=== PATIENT | female | born 1965 | race Caucasian/White ===

== ENCOUNTER → 2016-09-24 | Outpatient (CLI) | payer OTHER ==
[~2016-09-24] MED LIST: AZIT200S49 PO; [UNRECOGNIZED DRUG - OTHER]
== END | disposition home or self-care (01) ==
LOC: C.PAPS 09:56
PROVIDERS: ATTEND Obstetrics & Gynecology
DX: Z12.4 Encounter for screening for malignant neoplasm of cervix (principal)

== ENCOUNTER → 2016-09-26 | Outpatient (CLI) | payer OTHER ==
[2016-09-26 11:02] LABS: INSULIN FASTING 12.9 mU/L (3-25); INSULIN LOG 1.1106
[2016-09-26 11:45] LABS: THYROID STIMULATING HORMONE 1.1 uIu/ml (0.300-4.500)
[2016-09-26 13:17] LABS: CALCULATED INSULIN SENSITIVITY 0.321
== END | disposition home or self-care (01) ==
LOC: C.LAB1850 09:45
PROVIDERS: ATTEND Obstetrics & Gynecology
DX: R63.5 Abnormal weight gain (principal); N95.1 Menopausal and female climacteric states; N92.6 Irregular menstruation, unspecified

== ENCOUNTER 2022-10-14 22:42 | Inpatient (IN) ==
[2022-10-14] MEDS ORDERED: KETOROLAC TROMETHAMINE 15 MG/ML VIAL IV STA (22:55)
[2022-10-14] MEDS ORDERED: SODIUM CHLORIDE 0.9% 1000ML 1,000 ML IV STA (22:55)
[2022-10-14] MEDS ORDERED: ONDANSETRON INJ 2 MG/ML 2 ML VIAL IV STA (23:16)
--- NOTE | 2022-10-14 23:16 | Emergency Department Note ---
History of Present Illness General Chief complaint: Kidney Stone Stated complaint: Kidney Stones Time Seen by Provider: 10/14/22 22:53 History of Present Illness Maximum Pain Intensity: 10 57-year-old female presents with a history of a 3 mm distal right ureteral stone was seen by my colleague yesterday was offered pain medicine on discharge and did not want any pain medicine. Patient returns this evening complaining of right flank pain that is worsened some mild nausea. Patient does state that she took Flomax. Patient denies any other complaints. Patient denies fever. There are no other mitigating or alleviating factors Home Medications Medication Instructions Recorded Confirmed Type conjugated estrogens 0.625 mg 0.625 mg PO DAILY #90 tabs 05/09/22 10/13/22 Rx tablet (Premarin) medroxyprogesterone 2.5 mg tablet 2.5 mg PO DAILY #90 tabs 05/09/22 10/13/22 Rx (Provera) tamsulosin 0.4 mg capsule (Flomax) 0.4 mg PO HS #14 caps 10/13/22 Rx Allergies Allergy/AdvReac Type Severity Reaction Status Date / Time No Known Drug Allergies Allergy Unknown Verified 10/13/22 15:08 Past Med/Surg History Surgical History H/O wisdom tooth extraction Family History Other Diabetes Heart disease Social History Smoking Status: Never smoker Hx Alcohol Use: No Preferred Language: Serbian Feels Safe at Home: Yes Immunizations: Past medical history is kidney stone Review of Systems A total of 10 systems reviewed and were otherwise negative Gastrointestinal: + abdominal pain and + nausea Physical Exam Vital Signs Vital Signs - 24 hr 10/14/22 22:53 10/14/22 23:10 10/15/22 00:00 Temperature 37 C Temperature Source Temporal Artery Scan Pulse Rate 131 H 128 H Pulse Rate from SpO2 Sensor Pulse Rhythm Regular Regular Pulse Strength Normal Respiratory Rate 24 24 20 Respiratory Effort / Characteristics Non-Labored Spontaneous Non-Labored Respiratory Depth Normal Normal Respiratory Pattern Regular Blood Pressure 171/84 H Blood Pressure [Right Arm] 179/83 H Blood Pressure Mean 113 Blood Pressure Mean [Right Arm] 115 Blood Pressure Position Sitting Blood Pressure Position [Right Arm] Lying Pulse Oximetry 94 97 98 Oxygen Delivery Method Room Air Room Air Room Air Sepsis Recent Fever Within 48 Hours No Sepsis New/Unexplained Change in Mental Status N/A Sepsis Action Taken by Nursing No Action Required 10/15/22 01:45 10/15/22 02:00 10/15/22 02:11 Temperature 36.7 C Temperature Source Oral Pulse Rate 143 H 146 H Pulse Rate from SpO2 Sensor 143 H Pulse Rhythm Pulse Strength Respiratory Rate 24 22 Respiratory Effort / Characteristics Respiratory Depth Respiratory Pattern Blood Pressure 150/84 H 150/84 H Blood Pressure [Right Arm] Blood Pressure Mean 106 106 Blood Pressure Mean [Right Arm] Blood Pressure Position Blood Pressure Position [Right Arm] Pulse Oximetry 94 96 Oxygen Delivery Method Room Air Room Air Sepsis Recent Fever Within 48 Hours Sepsis New/Unexplained Change in Mental Status Sepsis Action Taken by Nursing 10/15/22 03:00 10/15/22 03:30 10/15/22 04:00 Temperature Temperature Source Pulse Rate 137 H 138 H 139 H Pulse Rate from SpO2 Sensor 136 H 140 H Pulse Rhythm Pulse Strength Respiratory Rate 25 H 24 24 Respiratory Effort / Characteristics Respiratory Depth Respiratory Pattern Blood Pressure 114/86 124/90 128/68 Blood Pressure [Right Arm] Blood Pressure Mean 95 101 88 Blood Pressure Mean [Right Arm] Blood Pressure Position Blood Pressure Position [Right Arm] Pulse Oximetry 95 91 Oxygen Delivery Method Room Air Sepsis Recent Fever Within 48 Hours Sepsis New/Unexplained Change in Mental Status Sepsis Action Taken by Nursing GENERAL: Patient is awake alert in moderate pain writhing on the stretcher EYES: The conjunctivae are clear. The pupils are round and reactive. EARS, NOSE, MOUTH AND THROAT: The nose is without any evidence of any deformity. Mucous membranes are moist. Tongue is midline. NECK: The neck is nontender and supple. RESPIRATORY: Normal respiratory effort is noted there is no evidence of wheezing rhonchi or rales CARDIOVASCULAR: Regular rate and rhythm noted there no murmurs rubs or gallops normal S1 normal S2. GASTROINTESTINAL: The abdomen is soft. Abdomen is nontender. PELVIS: The Pelvis is stable. No tenderness to palpation is noted. BACK: No midline tenderness or or step-off noted range of motion in flexion extension as well as rotation no signs of muscle spasm noted MUSCULOSKELETAL/EXTREMITIES: There is no evidence of gross deformity full range of motion is noted in the hips and shoulders. SKIN: There is no obvious evidence of any rash. There are no petechiae, pallor or cyanosis noted. NEUROLOGIC: Patient is awake alert and oriented x3 strength is symmetric Course Reevaluation(s) Reevaluation #1: Patient continued to complain of pain patient was tachycardic at a pulse ox around 94% at a heart rate of 150 was given IV fluid boluses was given Toradol was given fentanyl. Empirically started on Zosyn had a repeat CT which is still pending due to delay. I suspect that the patient has sepsis from a kidney stone. Patient was started on IV antibiotics and was receiving a 30/kg IV bolus Time: 03:07 Consultations Consultation #1: Spoke with the [facility]ist for admission for sepsis Time: 03:09 Consultation #2: Spoke with Dr. Camarillo from urology he will see the patient at bedside after I spoke with him regarding the lab values and the patient's CAT scan Time: 03:24 Administered Medications Sodium Chloride (Nss 1000ml) 2,000 mls @ 999 mls/hr IV .Q2H1M ONE Stop: 10/15/22 05:02 Last Admin: 10/15/22 03:53 Dose: 999 mls/hr Documented By: JING Magnesium Sulfate/Dextrose (Magnesium Sulfate / D5w) 1 gm in 100 mls @ 50 mls/hr IV ONE ONE Stop: 10/15/22 05:10 Last Admin: 10/15/22 03:35 Dose: 50 mls/hr Documented By: BLUE Discontinued Medications Fentanyl Citrate (Fentanyl Citrate 100 Mcg/2 Ml Vial) 50 mcg IV NOW STA Stop: 10/15/22 02:15 Last Admin: 10/15/22 02:21 Dose: 50 mcg Documented By: BLUE Sodium Chloride (Nss 1000ml) 1,000 mls @ 999 mls/hr IV .Q1H1M STA Stop: 10/14/22 23:55 Last Infusion: 10/15/22 00:46 Dose: 0 mls/hr Documented By: Admin: 10/14/22 23:05 Dose: 999 mls/hr Documented By: LEANA Sodium Chloride (Nss 1000ml) 1,000 mls @ 999 mls/hr IV .Q1H1M ONE Stop: 10/15/22 02:29 Last Infusion: 10/15/22 03:53 Dose: 0 mls/hr Documented By: Admin: 10/15/22 02:50 Dose: 999 mls/hr Documented By: BLUE Piperacillin Sod/Tazobactam Sod (Zosyn) 4.5 gm in 120 mls @ 240 mls/hr IV NOW ONE Stop: 10/15/22 03:19 Last Admin: 10/15/22 03:35 Dose: 240 mls/hr Documented By: BLUE Ketorolac Tromethamine (Ketorolac Tromethamine 15 Mg/Ml Vial) 15 mg IV NOW STA Stop: 10/14/22 22:56 Last Admin: 10/14/22 23:07 Dose: 15 mg Documented By: LEANA Ondansetron HCl (Ondansetron Inj 2 Mg/Ml 2 Ml Vial) 4 mg IV NOW STA Stop: 10/14/22 23:17 Last Admin: 10/14/22 23:54 Dose: 4 mg Documented By: BULE Critical Care Time Critical Care Time: Yes Total Critical Care Time: 45 I have personally spent greater than 45 minutes of critical care time in the direct management of this patient. This includes bedside care, interpretation of diagnostic studies, and testing, discussion with consultants, patient, and family members, and other required patient management activities. These minutes are in excess of all separately billable procedures. Medical Decision Making Medical Records Attestation: I reviewed the patient's medical records. Home Medications Current Medication List: was personally reviewed by me Laboratory Data Attestation: I reviewed the patient's lab results. Patient has a decrease in her white blood cell count to 1.8 in comparison to yesterday's CBC with a white count of 13.2. Patient also has an elevated lactate 10/14/22 23:07 10/14/22 23:07 Lab Results 10/14/22 10/14/22 10/15/22 Range/Units 23:07 23:07 00:00 WBC 1.80 L (4.8-10.8) K/ul RBC 4.47 (4.20-5.40) M/uL Hgb 13.1 (12.0-16.0) g/dl Hct 38.8 (37.0-47.0) % MCV 86.8 (80.0-100.0) fL MCH 29.3 (25.0-34.0) pg MCHC 33.8 (32.0-36.0) g/dL RDW Std Deviation 40.0 (36.4-46.3) fL RDW Coeff of [place]am 12.6 (11.5-14.5) % Plt Count 144 (130-400) K/uL MPV 11.0 (9.4-12.4) fL Immature Gran % (Auto) 1.1 % Neut % (Auto) 75.5 % Lymph % (Auto) 21.1 % [place] % (Auto) 0.6 % Eos % (Auto) 1.1 % Baso % (Auto) 0.6 % Neut # (Auto) 1.36 L (1.40-6.50) K/uL Lymph # (Auto) 0.38 L (1.2-3.4) K/uL [place] # (Auto) 0.01 L (0.11-0.59) K/uL Eos # (Auto) 0.02 (0-0.50) K/uL Baso # (Auto) 0.01 (0-0.2) K/uL Immature Gran # (Auto) 0.02 (0.01-0.20) K/uL Sodium 141 (136-145) mmol/L Potassium 3.3 L (3.5-5.1) mmol/L Chloride 109 H (98-107) mmol/L Carbon Dioxide 22 (21-32) mmol/L Anion Gap 10 (3-11) BUN 15 (6-23) mg/dl Creatinine 1.09 D (0.6-1.2) mg/dl Est Cr Clr Drug Dosing Not Reportable Est GFR ( Amer) 66.2 ml/min Est GFR (Non-Af Amer) 57.1 ml/min BUN/Creatinine Ratio 13.8 (10-20) Glucose 156 H (70-99(Fasting)) mg/dl Lactate (0.4-2.0) mmol/L Calcium 9.8 (8.5-10.1) mg/dl Magnesium 1.7 (1.7-2.4) mg/dl Total Bilirubin 0.4 (0.2-1.0) mg/dl AST 29 (13-39) U/L ALT 29 (7-52) U/L Alkaline Phosphatase 77 (34-104) U/L Total Protein 6.6 (6.0-8.3) gm/dl Albumin 4.0 (3.4-5.0) gm/dl Globulin 2.6 (2.5-4.0) gm/dl Albumin/Globulin Ratio 1.5 (0.9-2) Urine Color Yellow Urine Appearance Clear (Clear) Urine pH 6.5 (4.5-7.5) Ur Specific [place] 1.008 (1.000-1.030) Urine Protein Negative (Negative) Urine Glucose (UA) Negative (Negative) Urine Ketones Negative (Negative) Urine Blood Negative (Negative) Urine Nitrite Negative (Negative) Urine Bilirubin Negative (Negative) Urine Urobilinogen Negative (Negative) Ur Leukocyte Esterase Negative (Negative) SARS-CoV-2 (PCR) (Negative) Influenza Type A (PCR) (Neg) Influenza Type B (PCR) (Neg) RSV (RT-PCR) (Neg) 10/15/22 10/15/22 Range/Units 01:43 02:00 WBC (4.8-10.8) K/ul RBC (4.20-5.40) M/uL Hgb (12.0-16.0) g/dl Hct (37.0-47.0) % MCV (80.0-100.0) fL MCH (25.0-34.0) pg MCHC (32.0-36.0) g/dL RDW Std Deviation (36.4-46.3) fL RDW Coeff of [place] (11.5-14.5) % Plt Count (130-400) K/uL MPV (9.4-12.4) fL Immature Gran % (Auto) % Neut % (Auto) % Lymph % (Auto) % [place] % (Auto) % Eos % (Auto) % Baso % (Auto) % Neut # (Auto) (1.40-6.50) K/uL Lymph # (Auto) (1.2-3.4) K/uL [place] # (Auto) (0.11-0.59) K/uL Eos # (Auto) (0-0.50) K/uL Baso # (Auto) (0-0.2) K/uL Immature Gran # (Auto) (0.01-0.20) K/uL Sodium (136-145) mmol/L Potassium (3.5-5.1) mmol/L Chloride (98-107) mmol/L Carbon Dioxide (21-32) mmol/L Anion Gap (3-11) BUN (6-23) mg/dl Creatinine (0.6-1.2) mg/dl Est Cr Clr Drug Dosing Est GFR ( Amer) ml/min Est GFR (Non-Af Amer) ml/min BUN/Creatinine Ratio (10-20) Glucose (70-99(Fasting)) mg/dl Lactate 2.4 H* (0.4-2.0) mmol/L Calcium (8.5-10.1) mg/dl Magnesium (1.7-2.4) mg/dl Total Bilirubin (0.2-1.0) mg/dl AST (13-39) U/L ALT (7-52) U/L Alkaline Phosphatase (34-104) U/L Total Protein (6.0-8.3) gm/dl Albumin (3.4-5.0) gm/dl Globulin (2.5-4.0) gm/dl Albumin/Globulin Ratio (0.9-2) Urine Color Urine Appearance (Clear) Urine pH (4.5-7.5) Ur Specific [place] (1.000-1.030) Urine Protein (Negative) Urine Glucose (UA) (Negative) Urine Ketones (Negative) Urine Blood (Negative) Urine Nitrite (Negative) Urine Bilirubin (Negative) Urine Urobilinogen (Negative) Ur Leukocyte Esterase (Negative) SARS-CoV-2 (PCR) NEGATIVE (Negative) Influenza Type A (PCR) Negative (Neg) Influenza Type B (PCR) Negative (Neg) RSV (RT-PCR) Negative (Neg) Imaging Data Attestation: I personally reviewed and interpreted this imaging study as follows: My Impression: CT reviewed by me and appreciate stat rads read Radiologist's Impression: Patient: SIVAKUMAR VALERA (Female) : 69 Status: ER Date: 10/15/22 02:41 Room #: History: BILATERAL FLANK PAIN Slices: [id number] Priors: Hardy: Mikey Maurer @ [phone] Exams: CT ABDOMEN & PELVIS Without Contrast Contrast: Accession Numbers: [id number] Referring Physician: REFERRED SELF Preliminary Findings Only See Final Report For Complete Findings CT ABDOMEN & PELVIS Without Contrast: Moderate right hydroureteronephrosis due to a 2 mm stone in distal right ureter. Small physiologic free fluid lower pelvis. Hepatosplenomegaly. ECG Data Attestation: I personally reviewed and interpreted this ECG as follows: Additional Comments: EKG interpreted by me sinus tachycardia rate of [address]-T change no obvious ST segment elevation or depression normal axis normal intervals MDM Narrative Medical decision making differential diagnosis includes ureterolithiasis renal colic urinary tract infection dehydration Plan is to give IV fluids IV Zofran IV Toradol Prior records were reviewed by me Nursing notes were reviewed by me and appreciated Patient was given a 30/kg saline total bolus Patient will be admitted for sepsis Case was discussed with the [facility]ist Case discussed with urology Critical care time 45 minutes Patient is high risk due to the potential for septic shock Impression & Plan Sepsis, Leukopenia, Ureterolithiasis Discharge Plan Visit Data Chief Complaint: Kidney Stone Stated Complaint: Kidney Stones ED Provider: Elpidio King Discharge Problem: Sepsis, Leukopenia, Ureterolithiasis Patient Disposition: Admitted As Inpatient Forms Stand Alone Forms: My [facility] Prescriptions Prescriptions: No Action Premarin 0.625 mg tablet 0.625 mg PO DAILY Qty: 90 3RF medroxyprogesterone [Provera] 2.5 mg tablet 2.5 mg PO DAILY Qty: 90 3RF tamsulosin [Flomax] 0.4 mg capsule 0.4 mg PO HS Qty: 14 0RF Referrals Referrals: Haider Barber MD [Primary Care Provider] -
[2022-10-14 23:22] LABS: Basophils # (auto) 0.01 K/uL (0-0.2); Basophils % (auto) 0.6 %; Eosinophils # (auto) 0.02 K/uL (0-0.50); Eosinophils % (auto) 1.1 %; Hematocrit (blood only) 38.8 % (37.0-47.0); Hemoglobin 13.1 g/dl (12.0-16.0); Immature Granulocytes # (auto) 0.02 K/uL (0.01-0.20); Immature Granulocytes % (auto) 1.1 %; Lymphocytes # (auto) 0.38 K/uL (1.2-3.4); Lymphocytes % (auto) 21.1 %; Mean Corpuscular Hemoglobin 29.3 pg (25.0-34.0); Mean Corpuscular Hgb Conc 33.8 g/dL (32.0-36.0); Mean Corpuscular Volume 86.8 fL (80.0-100.0); Monocytes # (auto) 0.01 K/uL (0.11-0.59); Monocytes % (auto) 0.6 %; Neutrophils # (auto) 1.36 K/uL (1.40-6.50); Neutrophils % (auto) 75.5 %; Platelet Count 144 K/uL (130-400); RDW Coefficient of Variation 12.6 % (11.5-14.5); Red Blood Count 4.47 M/uL (4.20-5.40)
[2022-10-14 23:58] LABS: Anion Gap 10 (3-11); Bilirubin,Total 0.4 mg/dl (0.2-1.0); Calcium 9.8 mg/dl (8.5-10.1); Carbon Dioxide 22 mmol/L (21-32); Chloride 109 mmol/L (98-107); Potassium 3.3 mmol/L (3.5-5.1); Sodium 141 mmol/L (136-145)
[2022-10-15 00:04] LABS: Alanine Aminotransferase 29 U/L (7-52); Albumin Globulin Ratio 1.5 (0.9-2); Alkaline Phosphatase 77 U/L (34-104); Aspartate Aminotransferase 29 U/L (13-39); BUN Creatinine Ratio 13.8 (10-20); Blood Urea Nitrogen 15 mg/dl (6-23); Est GFR (African American) 66.2 ml/min; Est GFR (Non-African American) 57.1 ml/min; Globulin 2.6 gm/dl (2.5-4.0); Glucose 156 mg/dl (70-99(Fasting)); Total Protein 6.6 gm/dl (6.0-8.3)
[2022-10-15 00:44] LABS: Appearance Urine Clear (Clear); Bilirubin Urine Negative (Negative); Blood Urine Negative (Negative); Color Urine Yellow; Glucose Urine UA Negative (Negative); Ketones Urine Negative (Negative); Leukocyte Esterase Urine Negative (Negative); Nitrite Urine Negative (Negative); Protein Urine Negative (Negative); Specific Gravity Urine 1.008 (1.000-1.030); Urobilinogen Urine Negative (Negative); pH Urine 6.5 (4.5-7.5)
[2022-10-15] MEDS ORDERED: SODIUM CHLORIDE 0.9% 1000ML 1,000 ML IV ONE (01:29)
[2022-10-15] MEDS ORDERED: fentaNYL citrate 100 MCG/2 ML VIAL IV STA (02:14)
[2022-10-15] MEDS ORDERED: PIPERACILLIN/TAZOBACTAM 4.5 GM/120 ML BAG IV ONE (02:50)
[2022-10-15 02:59] LABS: Influenza A virus by PCR Negative (Neg); Influenza B virus by PCR Negative (Neg); RSV by PCR Negative (Neg); SARS CoV2 RNA(COVID-19) Ceph NEGATIVE (Negative)
[2022-10-15] MEDS ORDERED: SODIUM CHLORIDE 0.9% 1000ML 2,000 ML IV ONE (03:02)
[2022-10-15] MEDS ORDERED: POTASSIUM CHLORIDE PWD 20 MEQ PACK PO STA (03:10)
[2022-10-15] MEDS ORDERED: MAGNESIUM SULFATE / D5W 1 GM/100 ML BAG IV ONE ×2 (03:11→04:07)
--- NOTE | 2022-10-15 03:20 | History & Physical Report ---
Date of Service October 15, 2022 Assessment & Plan (1) Severe sepsis: Plan: SIRS plus lactic acidosis Secondary to complicated UTI secondary to obstructive uropathy Urine CS from ER visit 2 days ago growing gram-negative bacilli Hypokalemia secondary to emesis Hyperglycemia rule out DM PCU given tachycardia CS, Cefepime Follow final urine CS report from 10/13 ER visit IVF, follow lactic acid Strain urine Continue Flomax Urology consult Re: Obstructive uropathy (ER provider already in touch with Dr. Camarillo who is contemplating urgent intervention.) Replace potassium check hemoglobin A1c DVT prophylaxis. Lovenox subcu Full code Patient requesting updates from providers. Mr. Mario Haines, contact #[phone]. Text document was generated using Gamar voice recognition software. It may contain grammatical or spelling errors. Kindly contact undersigned for clarification of any documentation item in question. History of Present Illness Chief Complaint: Worsening kidney stone pain Primary Care Provider: Haider Barber MD History obtained from patient, family, and records. Medical history significant for new diagnosis of urolithiasis. 2 days ago, patient noted sudden onset of achy right flank pain while shopping. Symptoms later followed by nausea, vomiting. No fever, no chills. No prior episodes. Patient consulted ER. CT abdomen pelvis showed 3 mm obstructing stone distal ureter resulting in mild right hydroureteronephrosis. Patient discharged with Flomax prescription. Patient alternating Tylenol and ibuprofen at home yesterday. Patient woke up in the afternoon with intense right flank pain with some nausea symptoms. No fever, no chills, no chest pain, no shortness of breath. Patient brought to ER by . IV Zosyn administered at the ER. Medical History as above Surgical History : humerus surgery, appendectomy Family History : Kidney stones, heart disease, throat cancer, DM, Parkinson's disease Personal/Social history : Non-smoker, no EtOH intake, financial solutions advisor for an [employer] Allergies Allergy/AdvReac Type Severity Reaction Status Date / Time No Known Drug Allergies Allergy Unknown Verified 10/13/22 15:08 Home Medications Medication Instructions Recorded Confirmed Type conjugated estrogens 0.625 mg 0.625 mg PO DAILY #90 tabs 05/09/22 10/13/22 Rx tablet (Premarin) medroxyprogesterone 2.5 mg tablet 2.5 mg PO DAILY #90 tabs 05/09/22 10/13/22 Rx (Provera) tamsulosin 0.4 mg capsule (Flomax) 0.4 mg PO HS #14 caps 10/13/22 Rx Past Med/Surg History Medical History (Updated 10/15/22 @ 07:54 by Alejandro Toribio MD) Leukopenia Right distal ureteral calculus Sepsis Surgical History H/O wisdom tooth extraction Family History Other Diabetes Heart disease Social History Smoking Status: Never smoker Hx Alcohol Use: No Preferred Language: Kyrgyz Communication Ability: Effective Inspector Chief Required: No Beliefs That Will Affect Care: None Current Living Situation: Spouse and Family Feels Safe at Home: Yes Safety Concerns: Feels Safe At This Time Assistive Devices: None Review of Systems Review of Systems: As per HPI, all other systems reviewed and negative Physical Exam Physical Exam: GENERAL: uncomfortable, obese, no respiratory distress SKIN: Normal color, warm HEENT: [place] palpebral conjunctivae, no ptosis, dry buccal mucosa NECK : Supple, short neck, no tenderness CHEST : CTA, no tenderness HEART : Tachycardic, no obvious murmurs ABDOMEN: Some distention, no overt abdominal tenderness EXTREMITIES : No LE swelling/tenderness, no other conspicuous deformities noted NEUROLOGIC : Coherent, no facial asymmetry, no other gross focality Results & Data Results & Data ([facility]) Vital Signs (Past 12 Hours) Vital Signs Temp Pulse Resp BP BP Pulse Ox O2 Del Method 10/15/22 02:00 143 H 24 150/84 H 94 Room Air 10/15/22 01:45 36.7 C 10/15/22 00:00 20 179/83 H 98 Room Air 10/14/22 23:10 128 H 24 97 Room Air 10/14/22 22:53 37 C 131 H 24 171/84 H 94 Room Air Laboratory Results Laboratory Results WBC 1.80 K/ul (4.8-10.8) L 10/14/22 23:07 RBC 4.47 M/uL (4.20-5.40) 10/14/22 23:07 Hgb 13.1 g/dl (12.0-16.0) 10/14/22 23:07 Hct 38.8 % (37.0-47.0) 10/14/22 23: MCV 86.8 fL (80.0-100.0) 10/14/22 23: MCH 29.3 pg (25.0-34.0) 10/14/22 23: MCHC 33.8 g/dL (32.0-36.0) 10/14/22: RDW Std Deviation 40.0 fL (36.4-46.3) 10/14/22: RDW Coeff of Poonam 12.6 % (11.5-14.5) 10/14/22: Plt Count 144 K/uL (130-400) 10/14/22 23: MPV 11.0 fL (9.4-12.4) 10/14/22 23: Immature Gran % (Auto) 1.1 % 10/14/22 23: Neut % (Auto) 75.5 % 10/14/22 23:07 Lymph % (Auto) 21.1 % 10/14/22 23:07 [place] % (Auto) 0.6 % 10/14/22 23:07 Eos % (Auto) 1.1 % 10/14/22: Baso % (Auto) 0.6 % 10/14/22 23:07 Neut # (Auto) 1.36 K/uL (1.40-6.50) L 10/14/22: Lymph # (Auto) 0.38 K/uL (1.2-3.4) L 10/14/22 23:07 [place] # (Auto) 0.01 K/uL (0.11-0.59) L 10/14/22 23:07 Eos # (Auto) 0.02 K/uL (0-0.50) 10/14/22: Baso # (Auto) 0.01 K/uL (0-0.2) 10/14/22 23:07 Immature Gran # (Auto) 0.02 K/uL (0.01-0.20) 10/14/22 23: Sodium 141 mmol/L (136-145) 10/14/22 23:07 Potassium 3.3 mmol/L (3.5-5.1) L 10/14/22 23:07 Chloride 109 mmol/L (98-107) H 10/14/22 23:07 Carbon Dioxide 22 mmol/L (21-32) 10/14/22 23:07 Anion Gap 10 (3-11) 10/14/22 23:07 BUN 15 mg/dl (6-23) 10/14/22 23:07 Creatinine 1.09 mg/dl (0.6-1.2) D 10/14/22 23:07 Est Cr Clr Drug Dosing Not Reportable 10/14/22 23:07 Est GFR ( Amer) 66.2 ml/min 10/14/22 23:07 Est GFR (Non-Af Amer) 57.1 ml/min 10/14/22 23:07 BUN/Creatinine Ratio 13.8 (10-20) 10/14/22 23:07 Glucose 156 mg/dl (70-99(Fasting)) H 10/14/22 23:07 Lactate 2.4 mmol/L (0.4-2.0) H* 10/15/22 01:43 Calcium 9.8 mg/dl (8.5-10.1) 10/14/22 23:07 Total Bilirubin 0.4 mg/dl (0.2-1.0) 10/14/22 23:07 AST 29 U/L (13-39) 10/14/22 23:07 ALT 29 U/L (7-52) 10/14/22 23:07 Alkaline Phosphatase 77 U/L (34-104) 10/14/22 23:07 Total Protein 6.6 gm/dl (6.0-8.3) 10/14/22 23:07 Albumin 4.0 gm/dl (3.4-5.0) 10/14/22 23:07 Globulin 2.6 gm/dl (2.5-4.0) 10/14/22 23:07 Albumin/Globulin Ratio 1.5 (0.9-2) 10/14/22 23:07 Urine Color Yellow 10/15/22 00:00 Urine Appearance Clear (Clear) 10/15/22 00:00 Urine pH 6.5 (4.5-7.5) 10/15/22 00:00 Ur Specific [place] 1.008 (1.000-1.030) 10/15/22 00:00 Urine Protein Negative (Negative) 10/15/22 00:00 Urine Glucose (UA) Negative (Negative) 10/15/22 00:00 Urine Ketones Negative (Negative) 10/15/22 00:00 Urine Blood Negative (Negative) 10/15/22 00:00 Urine Nitrite Negative (Negative) 10/15/22 00:00 Urine Bilirubin Negative (Negative) 10/15/22 00:00 Urine Urobilinogen Negative (Negative) 10/15/22 00:00 Ur Leukocyte Esterase Negative (Negative) 10/15/22 00:00 SARS-CoV-2 (PCR) NEGATIVE (Negative) 10/15/22 02:00 Influenza Type A (PCR) Negative (Neg) 10/15/22 02:00 Influenza Type B (PCR) Negative (Neg) 10/15/22 02:00 RSV (RT-PCR) Negative (Neg) 10/15/22 02:[address] abdomen pelvis initial read: Moderate right hydroureteronephrosis due to a 2 mm stone in distal right ureter. Small physiologic free fluid lower pelvis. Hepatosplenomegaly. Chest x-ray as per my interpretation no infiltrate EKG as per my interpretation : Rate 145, sinus tachycardia, normal axis, T wave abnormalities inferior leads
[2022-10-15 03:21] LABS: Magnesium 1.7 mg/dl (1.7-2.4)
[2022-10-15] MEDS ORDERED: NSS + 20MEQ KCL 20 MEQ/1,000 ML BAG IV ONE ×2 (04:01→19:30)
[2022-10-15] MEDS ORDERED: PROPOFOL IV EMULSION 10 MG/ML 20 ML VIAL IV ONE (04:10)
[2022-10-15] MEDS ORDERED: DEXAMETHASONE SOD INJ 4 MG/ML VIAL ONE (04:10)
[2022-10-15] MEDS ORDERED: ONDANSETRON INJ 2 MG/ML 2 ML VIAL ONE (04:10)
[2022-10-15] MEDS ORDERED: LIDOCAINE 2% MPF LOCAL 5 ML VIAL INFIL ONE (04:10)
[2022-10-15] MEDS ORDERED: PHENYLEPHRINE 100MCG/ML 5ML SYR ONE (04:10)
[2022-10-15] MEDS ORDERED: MIDAZOLAM HCL 1 MG/ML 2ML VIAL ONE (04:11)
[2022-10-15] MEDS ORDERED: fentaNYL citrate 100 MCG/2 ML VIAL ONE (04:11)
--- NOTE | 2022-10-15 04:26 | Anesthesiology Consultation ---
Date of Service October 15, 2022 Assessment & Plan (1) Encounter for pre-operative examination: Chart Review Chart Review: Acceptable Risk for Surgery and Patient NOT seen in Pre Admission Testing Patient received IV potassium and magnesium is hanging. She has just finished 4.5grams of Zosyn IV in ER. Consults Requested none History Surgery Operation Date: 10/15/22 04:45 Proposed Procedures p Cystoscopy with Ureteral Stent Insertion - Brandon Camarillo MD Height/Weight Height: 5 ft 4 in Weight: 89.698 kg Allergies Allergy/AdvReac Type Severity Reaction Status Date / Time No Known Drug Allergies Allergy Unknown Verified 10/13/22 15:08 Medications Home Medications Medication Instructions Recorded Confirmed Last Taken conjugated estrogens 0.625 mg 0.625 mg PO DAILY #90 tabs 05/09/22 10/13/22 Unknown tablet (Premarin) medroxyprogesterone 2.5 mg tablet 2.5 mg PO DAILY #90 tabs 05/09/22 10/13/22 Unknown (Provera) tamsulosin 0.4 mg capsule (Flomax) 0.4 mg PO HS #14 caps 10/13/22 Unknown Active Medications Generic Name Dose Route Start Last Admin Trade Name Freq PRN Reason Stop Dose Admin Sodium Chloride 2,000 mls @ 999 mls/hr 10/15/22 03:02 10/15/22 03:53 Nss 1000ml IV 10/15/22 05:02 999 mls/hr .Q2H1M ONE Administration Magnesium Sulfate/Dextrose 1 gm in 100 mls @ 50 mls/hr 10/15/22 03:11 10/15/22 03:35 Magnesium Sulfate / D5w IV 10/15/22 05:10 50 mls/hr ONE ONE Administration NPO Date Last Intake of Fluids: 10/14/22 Time Last Intake of Fluids: 20:00 Last Intake of Fluids Comment: ICE CHIPS IN ER Date Last Intake of Solids: 10/14/22 Time Last Intake of Solids: 18:00 Past Medical History Medical History (Updated 10/15/22 @ 04:34 by Regino Holliday MD) Leukopenia Right distal ureteral calculus Sepsis Past Family History Family History Other Diabetes Heart disease Past Surgical History Surgical History H/O wisdom tooth extraction Social History Smoking Status: Never smoker Hx Alcohol Use: No Physical Exam Vital Signs Last Vital Signs Temp 36.7 C 10/15/22 01:45 Pulse 139 H 10/15/22 04:00 Resp 24 10/15/22 04:00 BP 128/68 10/15/22 04:00 Pulse Ox 91 10/15/22 03:30 O2 Del Method 10/15/22 03:00 Testing Laboratory Results 10/14/22 23:07 10/14/22 23:07 Urine Color Yellow 10/15/22 00:00 Urine Appearance Clear (Clear) 10/15/22 00:00 Urine pH 6.5 (4.5-7.5) 10/15/22 00:00 Ur Specific [place] 1.008 (1.000-1.030) 10/15/22 00:00 Urine Protein Negative (Negative) 10/15/22 00:00 Urine Glucose (UA) Negative (Negative) 10/15/22 00:00 Urine Ketones Negative (Negative) 10/15/22 00:00 Urine Nitrite Negative (Negative) 10/15/22 00:00 Ur Leukocyte Esterase Negative (Negative) 10/15/22 00:00 Electrocardiogram Date: 10/15/22 Findings: + ST @ (144) Poor data quality, interpretation may be adversely affected Sinus tachycardia Possible Left atrial enlargement Nonspecific ST and T wave abnormality Abnormal ECG When compared with ECG of 18-AUG-2010 22:06, Vent. rate has increased BY 49 BPM
--- NOTE | 2022-10-15 04:32 | Urology Consultation ---
Date of Consultation October 15, 2022 Assessment & Plan (1) Ureterolithiasis: (2) Sepsis: Plan Clinical picture is concerning for sepsis of urologic origin in the setting of an obstructing right ureteral stone. She received Zosyn in the emergency department. Blood cultures are pending. Urine culture from 10/13 demonstrated gram-negative rods, identification pending. With the ureteral stone and infection, I would recommend cystoscopy, right retrograde pyelogram and right ureteral stent placement to allow maximal drainage of the right kidney. Hopefully this will provide source control. We reviewed this surgery as well as risks and benefits. We discussed risks of bleeding, infection, injury to the urinary tract, need for additional procedure, inability to place the stent. She expressed understanding and willingness to proceed. History of Present Illness Reason for Consultation: Infected, obstructing right ureteral stone Attending Physician: Elpidio King, DO History of Present Illness This is a 57-year-old female who presented to the medicine in the emergency department on 10/14/2022. She had been seen the day prior with a right ureteral stone and was discharged home on tamsulosin. On return to the ED she was having worsened right-sided flank pain. She was not having any overt fevers however has been having significant nausea and vomiting overnight. Lab work in the emergency department was notable for leukopenia (1.0) down from leukocytosis the day prior (13.58). She had mild hypokalemia (3.3) and hyperchloremia (109). Creatinine was slightly elevated from prior at 1.09, up from 0.78. Notably, her lactate was 2.4. Urinalysis from 10/13 was nitrite positive and demonstrated 4+ bacteria. A CT scan of the abdomen and pelvis was repeated. I independently reviewed these images. She still has a persistent 2 to 3 mm stone in the distal right ureter with associated right-sided hydronephrosis. There does not appear to be any obstruction of the left kidney. Her bladder appears grossly normal. At the bedside she reports that she feels terrible. She is tachycardic and fatigued. Allergies Allergy/AdvReac Type Severity Reaction Status Date / Time No Known Drug Allergies Allergy Unknown Verified 10/13/22 15:08 Home Medications Medication Instructions Recorded Confirmed Type conjugated estrogens 0.625 mg 0.625 mg PO DAILY #90 tabs 05/09/22 10/13/22 Rx tablet (Premarin) medroxyprogesterone 2.5 mg tablet 2.5 mg PO DAILY #90 tabs 05/09/22 10/13/22 Rx (Provera) tamsulosin 0.4 mg capsule (Flomax) 0.4 mg PO HS #14 caps 10/13/22 Rx Patient History Medical History (Updated 10/15/22 @ 04:26 by Regino Holliday MD) Leukopenia Right distal ureteral calculus Sepsis Surgical History H/O wisdom tooth extraction Family History Other Diabetes Heart disease Social History Smoking Status: Never smoker Hx Alcohol Use: No Preferred Language: Yakut Feels Safe at Home: Yes Review of Systems Review of Systems: 12 point review of systems negative except for otherwise indicated. Physical Exam Physical Exam: Flushed, fatigued appearing, uncomfortable Constitutional: well developed and well nourished Eyes: + anicteric sclerae; pupils not irregular Respiratory: normal respiratory effort; no respiratory distress, does not use accessory muscles and no cough Cardiovascular: Persistently tachycardic on telemetry Gastrointestinal (Abdomen): Inspection/Auscultation: abdomen normal to inspection; abdomen not distended Musculoskeletal: Extremities: extremities normal to inspection Skin: normal turgor; no rashes and no lesions Neurologic: moves all extremities and awake Psychiatric: Orientation: alert and oriented x 3 Results & Data ([facility]) Vital Signs (Past 12 Hours) Vital Signs Temp Pulse Resp BP BP Pulse Ox O2 Del Method 10/15/22 04:00 139 H 24 128/68 10/15/22 03:30 138 H 24 124/90 91 10/15/22 03:00 137 H 25 H 114/86 95 Room Air 10/15/22 02:11 146 H 22 150/84 H 96 Room Air 10/15/22 02:00 143 H 24 150/84 H 94 Room Air 10/15/22 01:45 36.7 C 10/15/22 00:00 20 179/83 H 98 Room Air 10/14/22 23:10 128 H 24 97 Room Air 10/14/22 22:53 37 C 131 H 24 171/84 H 94 Room Air PG Care Time/CCT Total # of Minutes Spent Total Time Spent with Patient: Total time spent is greater than 50% in coordination of care (as documented) at patient's floor/unit and/or counseling patient: Coding Level of Care Code 56624 Office/Outpt Visit, New Diagnoses Ureterolithiasis N20.1 Sepsis A41.9
--- NOTE | 2022-10-15 05:25 | Operative Report ---
PG Post Operative Report Pre & Post Diagnosis Operation Date: 10/15/22 04:45 Preoperative diagnosis: Right ureteral stone, sepsis Postoperative diagnosis: Right ureteral stone, sepsis I identified the patient and participated in the time-out.: Yes Procedure Operation Date: 10/15/22 04:45 Cystoscopy right retrograde pyelogram, right ureteral stent placement Surgeon Brandon Camarillo MD Herd Tester None Estimated Blood Loss 0 Findings Consistent with Post-Op Diagnosis Specimens None Drains 6 Italian by 24 cm double-J ureteral stent in the right ureter Anesthesia Type MAC Complications none Disposition Accompanied Patient To Recovery: Yes Disposition: Recovery Room Indications This is a 57-year-old female who presented to the emergency department with right-sided flank pain. She was found to have a right ureteral stone with associated right-sided hydronephrosis. Prior urinalysis was concerning for infection and she had elevated lactate as well as tachycardia. The overall clinical picture was concerning for sepsis. She was brought to the OR for right ureteral stent placement. Description of Procedure The patient was identified in the holding area and informed consent was confirmed. She was marked on the right side, then was taken to the operating room where anesthesia was initiated. She was placed in the dorsal lithotomy position with all pressure points appropriately padded. She was prepped and draped in the usual sterile fashion and a preoperative timeout was performed. A well-lubricated cystoscope was inserted per urethra and panendoscopy was performed. The urethra was normal in appearance. The bladder was of normal size with ureteral orifices in orthotopic position. There was some squamous metaplasia over the trigone. No stones were appreciated. The right ureteral orifice was identified and cannulated with a 5 Italian open- ended catheter. A retrograde pyelogram was performed demonstrating the right ureter to be dilated. No filling defects were appreciated. A 0.038" ZIPwire was advanced to the level of the kidney under fluoroscopic guidance. Over the wire, a 6 Italian x 24 centimeter double-J ureteral stent was advanced. When the wire was removed, the proximal curl was visualized in the kidney with x-ray, and the distal curl visualized in the bladder with the cystoscope. At this point the bladder was drained and all instrumentation was removed. The patient was then awakened from anesthesia and was brought to the PACU in stable condition. I attest to the content of the Intraoperative Record and any orders documented therein. Any exceptions are noted below.
[2022-10-15] MEDS ORDERED: oxyCODONE HCL IR 5 MG TAB (IMMEDIATE RELEASE) PO PRN (05:36)
[2022-10-15] MEDS ORDERED: LORazepam 0.5 MG TAB PO PRN (05:36)
[2022-10-15] MEDS ORDERED: ATROPINE SULFATE 0.1 MG/ML 10ML SYR IV PRN (05:36)
[2022-10-15] MEDS ORDERED: DIATRIZOATE MEGLUMINE 30% 100ML VIAL INSTIL ONE (05:36)
[2022-10-15] MEDS ORDERED: KETOROLAC TROMETHAMINE 15 MG/ML VIAL IV PRN (05:36)
[2022-10-15] MEDS ORDERED: ACETAMINOPHEN 1,000 MG/100 ML VIAL IV STA (05:36)
[2022-10-15] MEDS ORDERED: fentaNYL citrate 100 MCG/2 ML VIAL IV PRN (05:36)
[2022-10-15] MEDS ORDERED: ePHEDrine sulfate 50 MG/ML AMP IV PRN (05:36)
[2022-10-15] MEDS ORDERED: PROMETHAZINE HCL 6.25 MG in SODIUM CHLORIDE 0.9% 50 ML IV PRN (05:36)
[2022-10-15] MEDS ORDERED: PROMETHAZINE HCL 12.5 MG in SODIUM CHLORIDE 0.9% 50 ML IV PRN (05:36)
[2022-10-15] MEDS ORDERED: PHENYLEPHRINE 100MCG/ML 5ML SYR IV PRN (05:36)
[2022-10-15] MEDS ORDERED: ONDANSETRON INJ 2 MG/ML 2 ML VIAL IV PRN (05:36)
[2022-10-15] MEDS ORDERED: ACETAMINOPHEN 1000 MG/100 ML IV IV ONE (05:38)
--- NOTE | 2022-10-15 05:42 | Anesthesiology Progress Note ---
Date of Service October 15, 2022 Anesthesia Post Procedure Vital Signs Vital Signs: Temp Pulse Resp BP BP Pulse Ox O2 Del Method 10/15/22 04:00 139 H 24 128/68 10/15/22 03:30 138 H 24 124/90 91 10/15/22 03:00 137 H 25 H 114/86 95 Room Air 10/15/22 02:11 146 H 22 150/84 H 96 Room Air 10/15/22 02:00 143 H 24 150/84 H 94 Room Air 10/15/22 01:45 36.7 C 10/15/22 00:00 20 179/83 H 98 Room Air 10/14/22 23:10 128 H 24 97 Room Air 10/14/22 22:53 37 C 131 H 24 171/84 H 94 Room Air Pain Intensity Right Groin: Pain Intensity: 10 Transfer of Care Handoff Completed per policy Notes Mental Status: alert / awake / arousable and participated in evaluation Patient Amnestic to Procedure: Yes Nausea / Vomiting: adequately controlled Pain: adequately controlled Airway Patency, RR, SpO2: stable & adequate BP & HR: see Notes below Hydration State: stable & adequate Anesthetic Complications: no major complications apparent and Pt Satisfied with anesthetic care Notes: pt tachy 2/2 sepsis. bp stable. awake and conversant.
[2022-10-15 06:53] LABS: Hematocrit (blood only) 32.7 % (37.0-47.0); Hemoglobin 11.2 g/dl (12.0-16.0); Mean Corpuscular Hemoglobin 29.6 pg (25.0-34.0); Mean Corpuscular Hgb Conc 34.3 g/dL (32.0-36.0); Mean Corpuscular Volume 86.3 fL (80.0-100.0); Mean Platelet Volume 11.5 fL (9.4-12.4); Platelet Count 103 K/uL (130-400); RDW Coefficient of Variation 12.7 % (11.5-14.5); RDW Standard Deviation 39.9 fL (36.4-46.3); Red Blood Count 3.79 M/uL (4.20-5.40)
[2022-10-15 07:22] LABS: Potassium 3.3 mmol/L (3.5-5.1)
[2022-10-15 07:28] LABS: BUN Creatinine Ratio 14.9 (10-20); Creatinine Clr Calc Pharmacy 102.8 ml/min; Est GFR (African American) 114.7 ml/min
[2022-10-15 07:34] LABS: Estimated Average Glucose 105 mg/dl; Hemoglobin A1C 5.3 % (4.5-5.6)
[2022-10-15 07:42] LABS: Basophils # (auto) 0.01 K/uL (0-0.2); Basophils % (auto) 0.1 %; Immature Granulocytes # (auto) 0.05 K/uL (0.01-0.20); Immature Granulocytes % (auto) 0.5 %; Lymphocytes # (auto) 0.22 K/uL (1.2-3.4); Lymphocytes % (auto) 2.2 %; Monocytes # (auto) 0.16 K/uL (0.11-0.59); Monocytes % (auto) 1.6 %; Neutrophils # (auto) 9.46 K/uL (1.40-6.50); Neutrophils % (auto) 95.6 %; Toxic Vacuolation 1+
--- NOTE | 2022-10-15 07:57 | CT Scan Report ---
ABDOMEN AND PELVIS CT WITHOUT CONTRAST CT DOSE: 1479.12 mGy.cm HISTORY: Right flank pain TECHNIQUE: Multiaxial CT images of the abdomen and pelvis were performed without contrast. A dose lo wering technique was utilized adhering to the principles of ALARA. COMPARISON STUDY: Abdomen and pelvis CT 10/13/2022. FINDINGS: Mild dependent changes seen within the lung bases. No pneumoperitoneum. No pneumatosis. No acute fractures. Stable 8 mm hypodense lesion within the posterior segment of the right hepatic lobe. This is incompletely characters on this noncontrast study. The unenhanced gallbladder, spleen, adren al glands, and pancreas unremarkable. Interval progression of the moderate right hydroureteronephrosi s secondary to an obstructing 3 mm stone within the distal right ureter. This is unchanged in positio n. Normal bladder, uterus, bilateral adnexa. Trace pelvic free fluid. No bowel wall thickening or obs truction. IMPRESSION: Interval progression of the moderate right hydronephrosis secondary to an obstructing 3 mm stone with in the distal right ureter. This is unchanged in position. ACT 112: Negative or not required by law. Electronically signed by: Nick Marquez M.D. 10/15/2022 7:56 AM
--- NOTE | 2022-10-15 08:26 | Fluoroscopy Report ---
FL retrograde includes kub CLINICAL HISTORY: RT CYSTO/STENT COMPARISON STUDY: None. FLUOROSCOPY TIME: 6 seconds FLUOROSCOPY IMAGES: 3 EXPOSURE DOSE: 1.5 mGy FINDINGS: Retrograde opacification of the right renal collecting system followed by placement of a ri ght ureteral stent. Only the proximal portion of the stent is identified and appears in good position . IMPRESSION: Fluoroscopic assistance as above. ACT 112: Negative or not required by law. Electronically signed by: Nick Marquez M.D. 10/15/2022 8:24 AM
[2022-10-15] MEDS: ENOXAPARIN INJ 40 MG/0.4 ML SYR SQ SCH (08:27)
[2022-10-15] MEDS: CEFEPIME 2,000 MG in SYRINGE 0 ML IV SCH ×2 (08:27→20:02)
[2022-10-15] MEDS: NSS + 20MEQ KCL 20 MEQ/1,000 ML BAG IV SCH ×3 (08:27→17:26)
--- NOTE | 2022-10-15 08:28 | XRay Report ---
XR chest 1V portable HISTORY: cough COMPARISON: None. FINDINGS: The lungs are clear. Cardiac silhouette is normal in size. No pleural effusions. No pneumot horax. IMPRESSION: No acute process. ACT 112: Negative or not required by law. Electronically signed by: Nick Marquez M.D. 10/15/2022 8:27 AM
[2022-10-15] MEDS ORDERED: POTASSIUM CHLORIDE CRTAB 20 MEQ TABCR PO STA (08:38)
--- NOTE | 2022-10-15 10:05 | Electrocardiogram Report ---
Test Reason : Blood Pressure : / mmHG Vent. Rate : 144 BPM Atrial Rate : 144 BPM P-R Int : 132 ms QRS Dur : 078 ms QT Int : 336 ms P-R-T Axes : 067 014 055 degrees QTc Int : 520 ms Poor data quality, interpretation may be adversely affected Sinus tachycardia Possible Left atrial enlargement Nonspecific ST and T wave abnormality Abnormal ECG When compared with ECG of 18-AUG-2010 22:06, Vent. rate has increased BY 49 BPM Confirmed by Omega Pan ([id number]) on 10/15/2022 10:05:02 AM Referred By: REFERRED SELF Confirmed By:Omega Pan
--- NOTE | 2022-10-15 13:56 | Hospitalist Progress Note ---
Date of Service October 15, 2022 Assessment & Plan (1) Severe sepsis: Plan: UTI Elevated lactic acid Met sepsis criteria on admission with tachycardia, Low WBC with positive urine cx for Ecoli lactate acid elevated at 4.6 Received IV Zosyn on admission Urine culture grew E. coli Currently on IV cefepime Blood culture pending Continue aggressive IV fluid Check lactic acid later Continue monitor closely Right ureteral stone Right Hydronephrosis CT abd/pelvis showed interval progression of the moderate right hydronephrosis secondary to an obstructing 3 mm stone within the distal right ureter. Urology on board S/P Cystoscopy right retrograde pyelogram, right ureteral stent placement performed by dr. Camarillo Continue Flomax Electrolytes abnormality Potassium 3.3 on admission K replaced continue monitor BMP Elevated glucose Mostly due to steroid Most recent Hba1c 5.3 Continue monitor BS DVT px on Lovenox subq Code status full code Spoke to Maroi over the phone Mr. Mario Haines, contact #[phone]. Admission and Anticipated Discharge Date Admission Date: October 15, 2022 Subjective Patient was seen and evaluated for follow-up sepsis Lying in bed with no acute distress watching TV Patient says she feels a lot better today compared to when she came She says she not having any flank pain right now Pt was able to call Mario and put him on speaker. Details provided to and answered all his questions Denies any chest pain, palpitation, dizziness, nausea, vomiting, and shortness of breath. Review of Systems Review of Systems: All systems reviewed & are unremarkable except as noted in Subjective Physical Exam Physical Exam: General- No acute distress Head- atraumatic Eyes- PERRL, EOMI, ENT- oropharynx clear Neck- supple, no JVD Lungs- clear to auscultation Heart- +tachycardia, no murmur Abdomen- normal bowel sounds, soft, nontender Extremities- no calf tenderness Neuro- alert, oriented x 3; PERRL, EOMI; no facial palsy; no dysarthria Skin- warm & dry Results & Data Results & Data ([facility]) Vital Signs (Past 12 Hours) Vital Signs Temp Pulse Pulse Resp BP BP Pulse Ox 10/15/22 11:46 36.6 C 107 H 17 112/72 92 10/15/22 08:00 123 H 10/15/22 09:59 117 H 16 100/66 10/15/22 08:26 121 H 103/63 10/15/22 08:26 115 H 89/53 L 10/15/22 07:42 121 H 94/64 L 10/15/22 07:27 118 H 98/64 L 10/15/22 07:04 36.8 C 130 H 18 92/53 L 91 10/15/22 06:34 37.1 C 127 H 20 98/55 L 91 10/15/22 06:24 37.1 C 129 H 23 100/57 L 91 10/15/22 06:14 37.1 C 132 H 24 106/60 92 10/15/22 06:04 37.1 C 129 H 23 96/59 L 91 10/15/22 05:54 37.1 C 132 H 25 H 106/57 L 93 10/15/22 05:44 37.7 C H 133 H 19 101/57 L 94 10/15/22 05:34 37.7 C H 136 H 25 H 105/61 94 10/15/22 04:00 139 H 24 128/68 10/15/22 03:30 138 H 24 124/90 91 10/15/22 03:00 137 H 25 H 114/86 95 10/15/22 02:11 146 H 22 150/84 H 96 10/15/22 02:00 143 H 24 150/84 H 94 10/15/22 01:45 36.7 C O2 Del Method O2 Flow Rate 10/15/22 11:46 Room Air 10/15/22 08:00 10/15/22 09:59 Room Air 10/15/22 08:26 10/15/22 08:26 10/15/22 07:42 10/15/22 07:27 10/15/22 07:04 Room Air 10/15/22 06:34 Room Air 10/15/22 06:24 Room Air 10/15/22 06:14 Room Air 10/15/22 06:04 Room Air 10/15/22 05:54 Room Air 10/15/22 05:44 Oxymask 5 10/15/22 05:34 Oxymask 7 10/15/22 04:00 10/15/22 03:30 10/15/22 03:00 Room Air 10/15/22 02:11 Room Air 10/15/22 02:00 Room Air 10/15/22 01:45
[2022-10-15 14:36] LABS: A calco-baum cmplx NotReported Not Detected (NotDetected); Bact fragilis Not Reported Not Detected (NotDetected); C auris Not Reported Not Detected (NotDetected); CTX-M Resistant Gene Not Detected (NotDetected); Calbicans Not Reported Not Detected (NotDetected); Candida glabrata Not Reported Not Detected (NotDetected); Candida krusei Not Reported Not Detected (NotDetected); Cneoformans/gatti Not Reported Not Detected (NotDetected); Cparapsilosis Not Reported Not Detected (NotDetected); Ctropicalis Not Reported Not Detected (NotDetected); E cloacae compx Not Reported Not Detected (NotDetected); Efaecalis Not Reported Not Detected (NotDetected); Efaecium Not Reported Not Detected (NotDetected); Enterobacterales DETECTED (NotDetected); Enterobacterales Not Reported DETECTED (NotDetected); Escherichia coli Not Reported DETECTED (NotDetected); H influenzae Not Reported Not Detected (NotDetected); IMP Resistant Gene Not Detected (NotDetected); K aerogenes Not Reported Not Detected (NotDetected); KPC Resistant Gene Not Detected (NotDetected); Koxytoca Not Reported Not Detected (NotDetected); Kpneumoniae grp Not Reported Not Detected (NotDetected); Lmonocyt Not Reported Not Detected (NotDetected); N meningitidis Not Reported Not Detected (NotDetected); NDM Resistant Gene Not Detected (NotDetected); OXA 48 Like Resistant Gene Not Detected (NotDetected); P aeruginosa Not Reported Not Detected (NotDetected); Proteus spp Not Reported Not Detected (NotDetected); Salmonella spp Not Reported Not Detected (NotDetected); Smarcescens Not Reported Not Detected (NotDetected); Staph lugdunensis Not Reported Not Detected (NotDetected); Staph spp. Not Reported Not Detected (NotDetected); Staphaureus Not Reported Not Detected (NotDetected); Staphepi Not Reported Not Detected (NotDetected); Stenmaltophilia Not Reported Not Detected (NotDetected); Strep agal(GrpB) Not Reported Not Detected (NotDetected); Strep pneum Not Reported Not Detected (NotDetected); Strep pyog (GrpA) Not Reported Not Detected (NotDetected); Strep spp Not Reported Not Detected (NotDetected); VIM Resistant Gene Not Detected (NotDetected); mcr-1 Colistin Resistant Gene Not Detected (NotDetected)
[2022-10-15] MEDS: ACETAMINOPHEN 325 MG TAB PO PRN (15:42)
[2022-10-15] MEDS: TAMSULOSIN HCL 0.4 MG CAP PO SCH (20:03)
[2022-10-16 06:47] LABS: Hematocrit (blood only) 32.4 % (37.0-47.0); Hemoglobin 10.9 g/dl (12.0-16.0); Mean Corpuscular Hemoglobin 29.5 pg (25.0-34.0); Mean Corpuscular Hgb Conc 33.6 g/dL (32.0-36.0); Mean Corpuscular Volume 87.6 fL (80.0-100.0); Mean Platelet Volume 12.1 fL (9.4-12.4); Platelet Count 100 K/uL (130-400); RDW Coefficient of Variation 13.2 % (11.5-14.5); RDW Standard Deviation 42.8 fL (36.4-46.3); White Blood Count 17.32 K/ul (4.8-10.8)
[2022-10-16 07:01] LABS: BUN Creatinine Ratio 25.6 (10-20); Calcium 8.1 mg/dl (8.5-10.1); Creatinine Clr Calc Pharmacy 159.9 ml/min; Est GFR (African American) 132.7 ml/min; Est GFR (Non-African American) 114.5 ml/min; Potassium 3.7 mmol/L (3.5-5.1)
[2022-10-16] MEDS: ENOXAPARIN INJ 40 MG/0.4 ML SYR SQ SCH ×2 (07:38→16:40)
[2022-10-16] MEDS: CEFEPIME 2,000 MG in SYRINGE 0 ML IV SCH (07:41)
[2022-10-16] MEDS: ACETAMINOPHEN 325 MG TAB PO PRN ×2 (07:44→13:42)
[2022-10-16] MEDS ORDERED: cefTRIAXone SODIUM 2,000 MG in DEXTROSE 5% 50 ML IV SCH (13:00)
--- NOTE | 2022-10-16 15:46 | Hospitalist Progress Note ---
Date of Service October 16, 2022 Assessment & Plan (1) Severe sepsis: Plan: Bacteremia UTI Elevated lactic acid Met sepsis criteria on admission with tachycardia, Low WBC with positive urine cx for Ecoli lactate acid elevated at 4.6, now normalized Received IV Zosyn on admission Urine culture grew E. coli Currently on IV cefepime Blood culture grew gram negative bacilli Repeat Blood cx pending Case discussed with ID as a curbside ( No formal ID consult placed) Will continue IV cefepime for now, once we have sensitivity, will deescalate abx Might consider to discharge on PO abx Clinically stable Right ureteral stone Right Hydronephrosis CT abd/pelvis showed interval progression of the moderate right hydronephrosis secondary to an obstructing 3 mm stone within the distal right ureter. Urology on board S/P Cystoscopy right retrograde pyelogram, right ureteral stent placement performed by dr. Camarillo Continue Flomax Follow up with urology outpatient Electrolytes abnormality Potassium 3.7 on admission continue monitor BMP Elevated glucose Mostly due to steroid Most recent Hba1c 5.3 Continue monitor BS DVT px on Lovenox subq Code status full code Spoke to Mario over the phone Mr. Mario Haines, contact #[phone]. Admission and Anticipated Discharge Date Admission Date: October 15, 2022 Subjective Patient was seen and evaluated for follow-up sepsis Lying in bed with no acute distress with at bedside Pt is very anxious being in the hospital She said that she feels better Denies any chest pain, palpitation, dizziness, nausea, vomiting, and shortness of breath. Review of Systems Review of Systems: All systems reviewed & are unremarkable except as noted in Subjective Physical Exam Physical Exam: General- No acute distress Head- atraumatic Eyes- PERRL, EOMI, ENT- oropharynx clear Neck- supple, no JVD Lungs- clear to auscultation Heart- +tachycardia, no murmur Abdomen- normal bowel sounds, soft, nontender Extremities- no calf tenderness Neuro- alert, oriented x 3; PERRL, EOMI; no facial palsy; no dysarthria Skin- warm & dry Results & Data Results & Data ([facility]) Vital Signs (Past 12 Hours) Vital Signs Temp Pulse Pulse Pulse Resp BP Pulse Ox 10/16/22 15:21 36.5 C 106 H 20 134/84 93 10/16/22 11:04 36.7 C 98 H 16 122/80 94 01/31/23 08:24 101 H 10/16/22 07:36 36.8 C 97 H 20 118/74 95 O2 Del Method O2 Flow Rate 10/16/22 15:21 Nasal Cannula 2 10/16/22 11:04 Room Air 10/16/22 08:24 10/16/22 07:36 Room Air
--- NOTE | 2022-10-16 15:47 | Urology Progress Note ---
Date of Service October 16, 2022 Assessment & Plan (1) Right distal ureteral calculus: (2) Sepsis: Plan: - Pt POD#1 s/p emergent cystoscopy and right ureteral stent placement. - Subjectively feeling better today. - Afebrile overnight, remains tachycardic but normotensive. - Lab work reviewed - creatinine 0.43, WBC increased to 17.32, Hgb 10.9. - Tolerating right ureteral stent with minimal bother. - Urine culture grew out E. coli, resistant to quinolones. Blood cultures showing gram negative bacilli. On IV Cefepime. - Continue supportive care and antibiotics per hospital medicine - transition to PO antibiotics upon discharge. - Recommend Tamsulosin, prn Pyridium and prn pain medication upon discharge for stent management. - Expected clinical course reviewed, all questions answered. - Will arrange outpatient follow-up with our service to discuss definitive stone management. - will sign off. Admission and Anticipated Discharge Date Admission Date: October 15, 2022 Subjective Patient seen and examined at bedside this afternoon. She is awake and resting in bed. at bedside. She reports feeling better today. No flank pain. Voiding spontaneously. No dysuria or hematuria. No nausea or vomiting. No fever or chills. Review of Systems Constitutional: as per Subjective / HPI Gastrointestinal: as per Subjective / HPI Genitourinary: as per Subjective / HPI Physical Exam Constitutional: well developed and well nourished; no acute distress Respiratory: normal respiratory effort; no respiratory distress and no labored breathing Gastrointestinal (Abdomen): Inspection/Auscultation: abdomen normal to inspection; abdomen not distended Neurologic: moves all extremities and awake Psychiatric: Orientation: alert and oriented x 3 Results & Data ([facility]) Vital Signs (Past 12 Hours) Vital Signs Temp Pulse Pulse Pulse Resp BP Pulse Ox 10/16/22 15:21 36.5 C 106 H 20 134/84 93 10/16/22 11:04 36.7 C 98 H 16 122/80 94 10/16/22 08:24 101 H 10/16/22 07:36 36.8 C 97 H 20 118/74 95 O2 Del Method O2 Flow Rate 10/16/22 15:21 Nasal Cannula 2 10/16/22 11:04 Room Air 10/16/22 08:24 10/16/22 07:36 Room Air PG Care Time/CCT Total # of Minutes Spent Total Time Spent with Patient: Total time spent is greater than 50% in coordination of care (as documented) at patient's floor/unit and/or counseling patient: Coding Level of Care Code 57002 SUB INP/OBS CARE 10/10MIN Diagnoses Right distal ureteral calculus N20.1 Sepsis A41.9
[2022-10-16] MEDS ORDERED: Nursing to Pharmacy Communication SCH (17:00)
[2022-10-16] MEDS ORDERED: CEFEPIME 2,000 MG in SYRINGE 0 ML IV SCH (20:00)
[2022-10-16] MEDS: TAMSULOSIN HCL 0.4 MG CAP PO SCH (20:28)
[2022-10-17 07:49] LABS: Hemoglobin 11.6 g/dl (12.0-16.0); Mean Corpuscular Hemoglobin 29.1 pg (25.0-34.0); Mean Corpuscular Hgb Conc 34.1 g/dL (32.0-36.0); Mean Corpuscular Volume 85.4 fL (80.0-100.0); Mean Platelet Volume 11.4 fL (9.4-12.4); Platelet Count 153 K/uL (130-400); RDW Standard Deviation 40.3 fL (36.4-46.3); Red Blood Count 3.98 M/uL (4.20-5.40); White Blood Count 13.63 K/ul (4.8-10.8)
[2022-10-17 08:04] LABS: BUN Creatinine Ratio 18.2 (10-20); Calcium 8.4 mg/dl (8.5-10.1); Creatinine Clr Calc Pharmacy 155.9 ml/min; Est GFR (African American) 131.7 ml/min; Est GFR (Non-African American) 113.6 ml/min; Magnesium 1.9 mg/dl (1.7-2.4); Phosphorus 2.3 mg/dl (2.5-4.9); Potassium 3.2 mmol/L (3.5-5.1)
[2022-10-17] MEDS ORDERED: POTASSIUM CHLORIDE CRTAB 20 MEQ TABCR PO STA (08:21)
--- NOTE | 2022-10-17 08:21 | Hospitalist Progress Note ---
Date of Service October 17, 2022 Assessment & Plan (1) Severe sepsis: Plan: Bacteremia UTI Elevated lactic acid Met sepsis criteria on admission with tachycardia, Low WBC with positive urine cx for Ecoli lactate acid elevated at 4.6, now normalized Received IV Zosyn on admission Urine culture grew E. coli Then on IV cefepime -> now switched to ceftriaxone Urine cultx positive for positive for E.coli resistant to fluoroquinolones Blood culture positive for E.coli resistant to fluoroquinolones Repeat Blood cx - negat. in 24 hrs Case discussed with ID - plan to DC on bactrim if repeat blood cultx remains negative Clinically stable Right ureteral stone Right Hydronephrosis CT abd/pelvis showed interval progression of the moderate right hydronephrosis secondary to an obstructing 3 mm stone within the distal right ureter. Urology on board S/P Cystoscopy right retrograde pyelogram, right ureteral stent placement performed by Dr. Camarillo Continue Flomax Follow up with urology outpatient Electrolytes abnormality Potassium 3.7 on admission continue monitor BMP Elevated glucose Mostly due to steroid Most recent Hba1c 5.3 Continue monitor BS DVT px on Lovenox subq Code status full code Spoke to pt's Mario over the phone Mr. Mraio Haines, contact #[phone]. Admission and Anticipated Discharge Date Admission Date: October 15, 2022 Subjective Patient seen in follow-up UTI/bacteremia, sepsis Sitting up in bed in no acute distress Reports feeling much better Denies any chest pain, palpitation, dizziness, nausea, vomiting, or shortness of breath. No abd. pain and no difficulty with urination Review of Systems Review of Systems: All systems reviewed & are unremarkable except as noted in Subjective Physical Exam Physical Exam: General- No acute distress Head- at raumatic Eyes- PER RL, EOMI, ENT- veronica pharynx clear Neck - supple, no JVD L ungs- clear to aus cultation Heart- r rr, no murmur Abd omen- normal bowel sounds, soft, non tender Extremities - no calf tendern ess Neuro- alert, oriented x 3; PERR L, EOMI; no facial palsy; no dysarth delmis, moves extremi ties Skin- warm & dry Results & Data Results & Data ([facility]) Vital Signs (Past 12 Hours) Vital Signs Temp Pulse Pulse Resp BP Pulse Ox O2 Del Method 10/17/22 07:06 36.7 C 103 H 19 132/81 93 Nasal Cannula 02/01/23 05:16 107 H 10/17/22 03:33 36.9 C 111 H 22 137/81 93 Nasal Cannula 10/16/22 23:50 37.1 C 110 H 22 138/80 92 Nasal Cannula 10/16/22 21:24 Nasal Cannula O2 Flow Rate 10/17/22 07:06 2 10/17/22 05:16 10/17/22 03:33 2 10/16/22 23:50 2 10/16/22 21:24 2 Laboratory Results 10/17/22 10/17/22 Range/Units 07:22 07:22 WBC 13.63 H (4.8-10.8) K/ul RBC 3.98 L (4.20-5.40) M/uL Hgb 11.6 L (12.0-16.0) g/dl Hct 34.0 L (37.0-47.0) % MCV 85.4 (80.0-100.0) fL MCH 29.1 (25.0-34.0) pg MCHC 34.1 (32.0-36.0) g/dL RDW Std Deviation 40.3 (36.4-46.3) fL RDW Coeff of Poonam 13.0 (11.5-14.5) % Plt Count 153 D (130-400) K/uL MPV 11.4 (9.4-12.4) fL Sodium 141 (136-145) mmol/L Potassium 3.2 L (3.5-5.1) mmol/L Chloride 110 H (98-107) mmol/L Carbon Dioxide 25 (21-32) mmol/L Anion Gap 6 (3-11) BUN 8 (6-23) mg/dl Creatinine 0.44 L (0.6-1.2) mg/dl Est Cr Clr Drug Dosing 155.9 ml/min Est GFR ( Amer) 131.7 ml/min Est GFR (Non-Af Amer) 113.6 ml/min BUN/Creatinine Ratio 18.2 (10-20) Glucose 94 (70-99(Fasting)) mg/dl Calcium 8.4 L (8.5-10.1) mg/dl Phosphorus 2.3 L (2.5-4.9) mg/dl Magnesium 1.9 (1.7-2.4) mg/dl Medications Administered Current Inpatient Medications Acetaminophen (Acetaminophen 325 Mg Tab) 650 mg PO Q4H PRN PRN Reason: Pain or Fever Stop: 11/14/22 05:35 Last Admin: 10/16/22 13:42 Dose: 650 mg Atropine Sulfate (Atropine Sulfate 0.1 Mg/Ml 10ml Syr) 0.5 mg IV Q1M PRN PRN Reason: PACU Use-HR<40 &/or Bradycardi Enoxaparin Sodium (Enoxaparin Inj 40 Mg/0.4 Ml Syr) 40 mg SQ Q24H SHON Stop: 11/16/22 16:59 Estrogens Conjugated (Estrogens, Conjugated 0.625 Mg Tab) 0.625 mg PO DAILY SHON Stop: 11/16/22 08:59 Fentanyl Citrate (Fentanyl Citrate 100 Mcg/2 Ml Vial) 25 mcg IV Q5M PRN PRN Reason: PACU Use Only-Pain Stop: 10/29/22 05:35 Promethazine HCl 12.5 mg/ (Sodium Chloride) 50.5 mls @ 202 mls/hr IV Q6H PRN PRN Reason: Nausea And Vomiting Stop: 11/14/22 05:35 Promethazine HCl 6.25 mg/ (Sodium Chloride) 50.25 mls @ 204 mls/hr IV ONCE PRN PRN Reason: PACU Use Only-Nausea/Vomiting Stop: 11/14/22 05:35 Ceftriaxone Sodium 2,000 mg/ (Dextrose) 70 mls @ 140 mls/hr IV Q24H SHON Stop: 10/28/22 08:29 Ketorolac Tromethamine (Ketorolac Tromethamine 15 Mg/Ml Vial) 15 mg IV Q6H PRN PRN Reason: Pain Stop: 10/20/22 05:35 Lorazepam (Lorazepam 0.5 Mg Tab) 0.5 mg PO TID PRN PRN Reason: Anxiety Stop: 11/14/22 05:35 Medroxyprogesterone Acetate (Medroxyprogesterone Acetate 2.5 Mg Tab) 2.5 mg PO DAILY [facility] Stop: 11/16/22 08:59 Ondansetron HCl (Ondansetron Inj 2 Mg/Ml 2 Ml Vial) 4 mg IV ONCE PRN PRN Reason: PACU Use Only-Nausea/Vomiting Stop: 11/14/22 05:35 Oxycodone HCl (Oxycodone Hcl Ir 5 Mg Tab (Immediate Release)) 5 - 10 mg PO QID PRN PRN Reason: Pain Stop: 10/29/22 05:35 Phenylephrine HCl (Phenylephrine 100mcg/Ml 5ml Syr) 100 mcg IV Q5M PRN PRN Reason: PACU Use Only-SBP<90 or HR>70 Stop: 11/14/22 05:35 Tamsulosin HCl (Tamsulosin Hcl 0.4 Mg Cap) 0.4 mg PO [facility] Stop: 11/14/22 20:59 Last Admin: 10/16/22 20:28 Dose: 0.4 mg
[2022-10-17] MEDS: cefTRIAXone SODIUM 2,000 MG in DEXTROSE 5% 50 ML IV SCH (08:40)
[2022-10-17] MEDS: ESTROGENS, CONJUGATED 0.625 MG TAB PO SCH (08:40)
[2022-10-17] MEDS ORDERED: ENOXAPARIN INJ 40 MG/0.4 ML SYR SQ SCH (17:00)
[2022-10-17] MEDS: TAMSULOSIN HCL 0.4 MG CAP PO SCH (20:41)
[2022-10-18 06:48] LABS: Hematocrit (blood only) 35.3 % (37.0-47.0); Mean Corpuscular Hemoglobin 29.3 pg (25.0-34.0); Mean Corpuscular Volume 86.1 fL (80.0-100.0); Mean Platelet Volume 11.2 fL (9.4-12.4); Platelet Count 185 K/uL (130-400); RDW Coefficient of Variation 12.7 % (11.5-14.5); RDW Standard Deviation 39.9 fL (36.4-46.3); White Blood Count 9.94 K/ul (4.8-10.8)
--- NOTE | 2022-10-18 07:23 | Hospitalist Progress Note ---
Date of Service October 18, 2022 Assessment & Plan (1) Severe sepsis: Plan: Bacteremia UTI Elevated lactic acid Met sepsis criteria on admission with tachycardia, Low WBC with positive urine cx for Ecoli lactate acid elevated at 4.6, now normalized Received IV Zosyn on admission Urine culture grew E. coli Then on IV cefepime -> now switched to ceftriaxone Urine cultx positive for positive for E.coli resistant to fluoroquinolones Blood culture positive for E.coli resistant to fluoroquinolones Repeat Blood cx - negat. in 48 hrs Case discussed with ID - plan to DC on Bactrim (liquid suspension as pt has difficulty taking pills) Clinically stable Right ureteral stone Right Hydronephrosis CT abd/pelvis showed interval progression of the moderate right hydronephrosis secondary to an obstructing 3 mm stone within the distal right ureter. Urology on board S/P Cystoscopy right retrograde pyelogram, right ureteral stent placement performed by Dr. Camarillo Continue Flomax Follow up with urology outpatient Electrolytes abnormality Potassium needs repleted on some days during her hosp. stay Elevated glucose Mostly due to steroid Most recent Hba1c 5.3 Continue monitor BS DVT px on Lovenox subq Code status full code Spoke to pt's Mario over the phone Mr. Mario Haines, contact #[phone]. Admission and Anticipated Discharge Date Admission Date: October 15, 2022 Subjective Patient seen in follow-up UTI/bacteremia, sepsis Sitting up in bed in no acute distress Reports feeling much better Denies any chest pain, palpitation, dizziness, nausea, vomiting, or shortness of breath. No abd. pain and no difficulty with urination No fever or chills Review of Systems Review of Systems: All systems reviewed & are unremarkable except as noted in Subjective Physical Exam Physical Exam: General- No acute distress Head- at raumatic Eyes- PER RL, EOMI, ENT- veronica pharynx clear Neck - supple, no JVD L ungs- clear to aus cultation Heart- r rr, no murmur Abd omen- normal bowel sounds, soft, non tender Extremities - no calf tendern ess Neuro- alert, oriented x 3; PERR L, EOMI; no facial palsy; no dysarth delmis, moves extremi ties Skin- warm & dry Results & Data Results & Data ([facility]) Vital Signs (Past 12 Hours) Vital Signs Temp Pulse Pulse Pulse Resp BP Pulse Ox 10/18/22 03:39 36.7 C 93 H 16 160/90 H 92 10/18/22 00:01 36.7 C 98 H 16 163/80 H 94 10/17/22 23:54 90 10/17/22 19:26 36.6 C 105 H 20 165/90 H 96 O2 Del Method 10/18/22 03:39 Room Air 10/18/22 00:01 Room Air 10/17/22 23:54 10/17/22 19:26 Room Air Laboratory Results 10/18/22 10/18/22 Range/Units 06:16 06:16 WBC 9.94 (4.8-10.8) K/ul RBC 4.10 L (4.20-5.40) M/uL Hgb 12.0 (12.0-16.0) g/dl Hct 35.3 L (37.0-47.0) % MCV 86.1 (80.0-100.0) fL MCH 29.3 (25.0-34.0) pg MCHC 34.0 (32.0-36.0) g/dL RDW Std Deviation 39.9 (36.4-46.3) fL RDW Coeff of Poonam 12.7 (11.5-14.5) % Plt Count 185 (130-400) K/uL MPV 11.2 (9.4-12.4) fL Sodium 141 (136-145) mmol/L Potassium 3.5 (3.5-5.1) mmol/L Chloride 109 H (98-107) mmol/L Carbon Dioxide 26 (21-32) mmol/L Anion Gap 6 (3-11) BUN 7 (6-23) mg/dl Creatinine 0.38 L (0.6-1.2) mg/dl Est Cr Clr Drug Dosing 181.3 ml/min Est GFR ( Amer) 138.2 ml/min Est GFR (Non-Af Amer) 119.3 ml/min BUN/Creatinine Ratio 18.4 (10-20) Glucose 93 (70-99(Fasting)) mg/dl Calcium 8.8 (8.5-10.1) mg/dl Phosphorus 2.5 (2.5-4.9) mg/dl Magnesium 2.0 (1.7-2.4) mg/dl Medications Administered Current Inpatient Medications Acetaminophen (Acetaminophen 325 Mg Tab) 650 mg PO Q4H PRN PRN Reason: Pain or Fever Stop: 11/14/22 05:35 Last Admin: 10/16/22 13:42 Dose: 650 mg Atropine Sulfate (Atropine Sulfate 0.1 Mg/Ml 10ml Syr) 0.5 mg IV Q1M PRN PRN Reason: PACU Use-HR<40 &/or Bradycardi Enoxaparin Sodium (Enoxaparin Inj 40 Mg/0.4 Ml Syr) 40 mg SQ Q24H SHON Stop: 11/16/22 16:59 Last Admin: 10/17/22 16:28 Dose: 40 mg Estrogens Conjugated (Estrogens, Conjugated 0.625 Mg Tab) 0.625 mg PO DAILY [facility] Stop: 11/16/22 08:59 Last Admin: 10/18/22 08:42 Dose: 0.625 mg Fentanyl Citrate (Fentanyl Citrate 100 Mcg/2 Ml Vial) 25 mcg IV Q5M PRN PRN Reason: PACU Use Only-Pain Stop: 10/29/22 05:35 Promethazine HCl 12.5 mg/ (Sodium Chloride) 50.5 mls @ 202 mls/hr IV Q6H PRN PRN Reason: Nausea And Vomiting Stop: 11/14/22 05:35 Promethazine HCl 6.25 mg/ (Sodium Chloride) 50.25 mls @ 204 mls/hr IV ONCE PRN PRN Reason: PACU Use Only-Nausea/Vomiting Stop: 11/14/22 05:35 Ketorolac Tromethamine (Ketorolac Tromethamine 15 Mg/Ml Vial) 15 mg IV Q6H PRN PRN Reason: Pain Stop: 10/20/22 05:35 Lorazepam (Lorazepam 0.5 Mg Tab) 0.5 mg PO TID PRN PRN Reason: Anxiety Stop: 11/14/22 05:35 Medroxyprogesterone Acetate (Medroxyprogesterone Acetate 2.5 Mg Tab) 2.5 mg PO DAILY [facility] Stop: 11/16/22 08:59 Last Admin: 10/18/22 08:42 Dose: 2.5 mg Ondansetron HCl (Ondansetron Inj 2 Mg/Ml 2 Ml Vial) 4 mg IV ONCE PRN PRN Reason: PACU Use Only-Nausea/Vomiting Stop: 11/14/22 05:35 Oxycodone HCl (Oxycodone Hcl Ir 5 Mg Tab (Immediate Release)) 5 - 10 mg PO QID PRN PRN Reason: Pain Stop: 10/29/22 05:35 Phenylephrine HCl (Phenylephrine 100mcg/Ml 5ml Syr) 100 mcg IV Q5M PRN PRN Reason: PACU Use Only-SBP<90 or HR>70 Stop: 11/14/22 05:35 Tamsulosin HCl (Tamsulosin Hcl 0.4 Mg Cap) 0.4 mg PO HS [facility] Stop: 11/14/22 20:59 Last Admin: 10/17/22 20:41 Dose: 0.4 mg Trimethoprim/Sulfamethoxazole (Sulfamethoxazole/Trimethoprim 200mg/40mg/5ml Susp) 320 mg PO BID [facility] Stop: 11/01/22 20:59
[2022-10-18 08:20] LABS: BUN Creatinine Ratio 18.4 (10-20); Calcium 8.8 mg/dl (8.5-10.1); Creatinine Clr Calc Pharmacy 181.3 ml/min; Est GFR (African American) 138.2 ml/min; Est GFR (Non-African American) 119.3 ml/min; Phosphorus 2.5 mg/dl (2.5-4.9); Potassium 3.5 mmol/L (3.5-5.1)
[2022-10-18] MEDS: cefTRIAXone SODIUM 2,000 MG in DEXTROSE 5% 50 ML IV SCH (08:41)
[2022-10-18] MEDS: ESTROGENS, CONJUGATED 0.625 MG TAB PO SCH (08:42)
[2022-10-18] MEDS ORDERED: POTASSIUM CHLORIDE PWD 20 MEQ PACK PO ONE (10:19)
--- NOTE | 2022-10-18 12:55 | Discharge Summary ---
Date of Service October 18, 2022 Admission HPI Per Admitting Provider History obtained from patient, family, and records. Medical history significant for new diagnosis of urolithiasis. 2 days ago, patient noted sudden onset of achy right flank pain while shopping. Symptoms later followed by nausea, vomiting. No fever, no chills. No prior episodes. Patient consulted ER. CT abdomen pelvis showed 3 mm obstructing stone distal ureter resulting in mild right hydroureteronephrosis. Patient discharged with Flomax prescription. Patient alternating Tylenol and ibuprofen at home yesterday. Patient woke up in the afternoon with intense right flank pain with some nausea symptoms. No fever, no chills, no chest pain, no shortness of breath. Patient brought to ER by . IV Zosyn administered at the ER. Medical History as above Surgical History : humerus surgery, appendectomy Family History : Kidney stones, heart disease, throat cancer, DM, Parkinson's disease Personal/Social history : Non-smoker, no EtOH intake, director financial planning for an [employer] Admission Exam Per Admitting Provider GENERAL: uncomfortable, obese, no respiratory distress SKIN: Normal color, warm HEENT: [place] palpebral conjunctivae, no ptosis, dry buccal mucosa NECK : Supple, short neck, no tenderness CHEST : CTA, no tenderness HEART : Tachycardic, no obvious murmurs ABDOMEN: Some distention, no overt abdominal tenderness EXTREMITIES : No LE swelling/tenderness, no other conspicuous deformities noted NEUROLOGIC : Coherent, no facial asymmetry, no other gross focality Principal Diagnosis Sepsis, UTI, bacteremia Right ureteral stone, right hydronephrosis Discharge Exam General- No acute distress Head- atraumatic Eyes- PERRL, EOMI, ENT- oropharynx clear Neck- supple, no JVD Lungs- clear to auscultation Heart- rrr, no murmur Abdomen- normal bowel sounds, soft, nontender Extremities- no calf tenderness Neuro- alert, oriented x 3; PERRL, EOMI; no facial palsy; no dysarthria, moves extremities Skin- warm & dry Discharge Data Allergies Allergy/AdvReac Type Severity Reaction Status Date / Time No Known Drug Allergies Allergy Unknown Verified 10/13/22 15:08 Consultations 10/15/22 03:08 ED Decision to Admit Stat 10/15/22 05:36 Consult Urology Routine Procedures Performed Operation Date: 10/15/22 04:45 Actual Procedures p Cystoscopy, Right retrograde pyelogram, and Right Ureteral Stent Insertion(Right) - Brandon Camarillo MD Ordered Studies 10/15/22 [place] retrograde includes kub Routine 10/15/22 01:29 CT abd pelvis wo con Urgent FINDINGS: Mild dependent changes seen within the lung bases. No pneumoperitoneum. No pneumatosis. No acute fractures. Stable 8 mm hypodense lesion within the posterior segment of the right hepatic lobe. This is incompletely characters on this noncontrast study. The unenhanced gallbladder, spleen, adrenal glands, and pancreas unremarkable. Interval progression of the moderate right hydroureteronephrosis secondary to an obstructing 3 mm stone within the distal right ureter. This is unchanged in position. Normal bladder, uterus, bilateral adnexa. Trace pelvic free fluid. No bowel wall thickening or obstruction. IMPRESSION: Interval progression of the moderate right hydronephrosis secondary to an obstructing 3 mm stone within the distal right ureter. This is unchanged in position. Hospital Course (1) Severe sepsis: E. coli Bacteremia E.coli UTI Elevated lactic acid Met sepsis criteria on admission with tachycardia, Low WBC with positive urine cx for Ecoli lactate acid elevated at 4.6, now normalized Received IV Zosyn on admission Then on IV cefepime -> now switched to ceftriaxone Urine cultx positive for positive for E.coli resistant to fluoroquinolones Blood culture positive for E.coli resistant to fluoroquinolones Repeat Blood cx - negat. in 48 hrs Case discussed with ID - plan to DC on Bactrim (liquid suspension as pt has difficulty taking pills) Clinically stable Right ureteral stone Right Hydronephrosis CT abd/pelvis showed interval progression of the moderate right hydronephrosis secondary to an obstructing 3 mm stone within the distal right ureter. Urology on board S/P Cystoscopy right retrograde pyelogram, right ureteral stent placement performed by Dr. Camarillo Continue Flomax Follow up with urology outpatient Electrolytes abnormality Potassium needed repleted on some days during her hosp. stay Elevated glucose Mostly due to steroid Most recent Hba1c 5.3 Continue monitor BS Total Time Total Time Spent Total Time Spent (In Minutes): 40 Discharge Plan Discharge Items Patient Disposition: Home - Self-Care Reason For Visit: SEPSIS, TACHY Discharge Diagnosis: Sepsis, UTI, bacteremia Right ureteral stone, right hydronephrosis Activity: Per Instructions section Non-emergency contact: Primary Care Provider Call non-emergency contact if: you have any medication questions and your symptoms worsen Follow-up/Referrals: Haider Barber MD [Primary Care Provider] - (Date & Time 10/22/2022 11:00 AM Provider [facility] [place] [facility] ) Diet: Heart Healthy Addtl Attending Provider Instructions: Follow-up with your primary care doctor, the appointment was scheduled for you for October 22. Follow-up with urology. Finish antibiotic treatment with Bactrim, as prescribed. Recommend taking probiotics, while taking antibiotics. Pending Studies at Discharge: Yes Studies:: Final blood cultures Stand-Alone Forms: My [facility] [place] [employer], Smoking Cessation Medications and DC Order Prescriptions: New sulfamethoxazole-trimethoprim 200-40 mg/5 mL Suspension 320 mg PO BID 11 Days Qty: 473 0RF Continued Premarin 0.625 mg tablet 0.625 mg PO DAILY Qty: 90 3RF medroxyprogesterone [Provera] 2.5 mg tablet 2.5 mg PO DAILY Qty: 90 3RF tamsulosin [Flomax] 0.4 mg capsule 0.4 mg PO HS Qty: 14 0RF Discharge Orders: Discharge Order (Routine); Ordered 10/18/22 Ordered By: Rafael Wang Admission Data Admit Date/Time: 10/15/22 04:36 Attending Provider: Rafael Wang Admit Provider: Alejandro Toribio Primary Care Provider: Haider Barber Other Providers: Alejandro Toribio ; Malik Aguilar ; Elpidio Riley ; Vipul Fisher ; Nya Begum ; Juancarlos Vital ; Reshma Firero ; Dianna Barnes ; Brandon Camarillo ; Nirmala Esparza ; Rachel Goldberg ; John Christianson ; Taqueria Virgen ; Sarah Talbot
[2022-10-18] MEDS ORDERED: SULFAMETHOXAZOLE/TRIMETHOPRIM 200MG/40MG/5ML SUSP PO SCH (21:00)
== END 2022-10-18 13:49 | disposition home or self-care (01) | DRG 854 ==
LOC: ED 22:42 → OR 10-15 04:35 → 2S 10-15 04:36 → SUATTDRO 10-15 04:36 → OR 10-15 04:53
DX: R65.20 Severe sepsis without septic shock; N20.1 Calculus of ureter; N13.6 Pyonephrosis; A41.51 Sepsis due to Escherichia coli [E. coli]; Z82.49 Family history of ischemic heart disease and other diseases of the circulatory system; Z83.3 Family history of diabetes mellitus; E87.20 Acidosis, unspecified